=== PATIENT | male | born 1995 | race Caucasian/White ===

== ENCOUNTER 2024-12-15 20:18 | Emergency (ER) | payer SELFPAY ==
[2024-12-15] MEDS: Sodium Chloride 0.9% 1,000 ML IV ONE (23:19)
[2024-12-15] MEDS: Ondansetron 4 MG/2 ML SDV IVPUSH ONE (23:20)
[2024-12-15] MEDS: Ketorolac 30 MG/ML SDV IVPUSH ONE (23:20)
[2024-12-15] MEDS: Azithromycin 250 MG Tab PO ONE (23:23)
[2024-12-15] MEDS: cefTRIAXone 1 GM in Lidocaine 1% 2.1 ML IM ONE (23:25)
[2024-12-15] MEDS: Azithromycin 250 MG Tab PO SCH (23:45)
== END 2024-12-16 00:37 | disposition home or self-care (01) ==
LOC: MW.ED 20:18
DX: J02.8 Acute pharyngitis due to other specified organisms (principal); E86.0 Dehydration; Z79.899 Other long term (current) drug therapy; Z75.3 Unavailability and inaccessibility of health-care facilities
CPT/HCPCS: 96361; 96372; 96374; 96375; 99283; A9270; J0696; J1100; J1885; J2003; J2405; J7030